=== PATIENT | male | born 1985 | race Caucasian/White ===

== ENCOUNTER → 2023-07-14 12:25 | Outpatient (REF) | payer OTHER, SELFPAY | LOC: RAD 12:25 | PROVIDERS: ATTENDING PHYSICIAN Nurse Practitioner Family; FAMILY PHYSICIAN Internal Medicine | DX: M25.562 Pain in left knee (principal) | CPT/HCPCS: 73560 ==

== ENCOUNTER → 2023-10-26 17:51 | Outpatient (REF) | payer OTHER, SELFPAY | LOC: RAD 17:51 | PROVIDERS: ATTENDING PHYSICIAN Emergency Medicine; FAMILY PHYSICIAN Internal Medicine | DX: S69.91XA Unspecified injury of right wrist, hand and finger(s), initial encounter (principal) | CPT/HCPCS: 73140 ==

== ENCOUNTER → 2024-04-19 08:19 | Outpatient (REF) | payer OTHER, SELFPAY | LOC: RCS 08:19 | PROVIDERS: ATTENDING PHYSICIAN Nurse Practitioner Family; FAMILY PHYSICIAN Internal Medicine | DX: R00.2 Palpitations (principal) | CPT/HCPCS: 93017; 93350 ==